=== PATIENT | female | born 1990 | race Asian ===

== ENCOUNTER 2016-12-29 11:24 | Inpatient (IN) | payer OTHER ==
[~2016-12-29] VITALS: Ht 177.8 cm; Wt 91.3 kg
[2016-12-29] MEDS ORDERED: OXYTOCIN 30U/ 0.9% NaCL 500ML 500 ML IV PRN (12:12)
[2016-12-29] MEDS: D5%-LACTATED RINGERS 1,000 ML IV SCH ×2 (12:12→20:12)
[2016-12-29] MEDS ORDERED: OXYTOCIN 30U/ 0.9% NaCL 500ML 500 ML IV ONE (12:12)
[2016-12-29] MEDS ORDERED: FENTANYL PF 100 MCG/2ML IV PRN (12:30)
[2016-12-29] MEDS ORDERED: FENTANYL PF 100 MCG/2ML IVPush PRN (12:30)
[2016-12-29] MEDS ORDERED: ONDANSETRON 2MG/ML, 2ML IVPush PRN (12:30)
[2016-12-29] MEDS ORDERED: CALCIUM CARBONATE 500 MG TAB.CHEW PO PRN (12:30)
[2016-12-29] MEDS ORDERED: SODIUM CHLORIDE FLUSH 10ML SYR IVF PRN (12:30)
[2016-12-29 12:44] VITALS: BP 125/86
[2016-12-29] MEDS ORDERED: NEWBORN KIT ONE (14:08)
[2016-12-29] MEDS ORDERED: LIDOCAINE 1%, 20ML ONE (14:08)
[2016-12-29] MEDS ORDERED: MISOPROSTOL 200 MCG TABLET ONE (14:08)
[2016-12-29] MEDS ORDERED: OXYTOCIN 30U/ 0.9% NaCL 500ML 500 ML ONE ×2 (14:09→20:04)
[2016-12-29] MEDS ORDERED: METHYLERGONOVINE 0.2 MG/ML IM PRN (17:30)
[2016-12-29] MEDS ORDERED: CARBOPROST TROMETHAMINE 250 MCG/ML, 1ML IM PRN (17:30)
[2016-12-29] MEDS ORDERED: METOCLOPRAMIDE 5 MG/ML, 2ML IV PRN (17:30)
[2016-12-29] MEDS ORDERED: ONDANSETRON 2MG/ML, 2ML IV PRN (17:30)
[2016-12-29] MEDS ORDERED: MISOPROSTOL 200 MCG TABLET PR PRN (17:30)
[2016-12-29] MEDS ORDERED: ACETAMINOPHEN 325 MG TABLET PO PRN (17:30)
[2016-12-29] MEDS ORDERED: OXYcodone/APAP 5/325MG TABLET PO PRN ×2 (17:30)
[2016-12-29] MEDS: LACTATED RINGERS 1,000 ML IV SCH ×2 (19:30→20:12)
[2016-12-29] MEDS ORDERED: IBUPROFEN 600 MG TABLET ONE (20:04)
[2016-12-29] MEDS: IBUPROFEN 600 MG TABLET PO PRN (20:29)
[2016-12-29] MEDS: OXYTOCIN 30U/ 0.9% NaCL 500ML 500 ML IV SCH (20:30)
[2016-12-29 21:30] VITALS: BP 112/68
[2016-12-30 00:25] VITALS: BP 111/63
[2016-12-30] MEDS: IBUPROFEN 600 MG TABLET PO PRN ×3 (02:59→20:48)
[2016-12-30] MEDS: OXYTOCIN 30U/ 0.9% NaCL 500ML 500 ML IV SCH ×2 (03:27→04:43)
[2016-12-30 05:20] VITALS: BP 111/66
[2016-12-30 06:55] VITALS: BP 116/60
[2016-12-30] MEDS: DOCUSATE 100 MG CAPSULE PO PRN ×2 (08:39→20:48)
[2016-12-30] MEDS: PRENATAL VIT/IRON/FA 1 EACH TABLET PO SCH (08:39)
[2016-12-30 11:50] VITALS: BP 110/76
[2016-12-30 16:10] VITALS: BP 114/71
[2016-12-30 20:50] VITALS: BP 114/71
[2016-12-31 07:00] VITALS: BP 111/71
[2016-12-31] MEDS: DOCUSATE 100 MG CAPSULE PO PRN (09:27)
[2016-12-31] MEDS: PRENATAL VIT/IRON/FA 1 EACH TABLET PO SCH (09:27)
[2016-12-31] MEDS: IBUPROFEN 600 MG TABLET PO PRN (09:27)
== END 2016-12-31 12:27 | disposition home or self-care (01) | DRG 775 ==
LOC: LDOP 11:24 → LDIP 11:49 → 2NW 21:15
PROVIDERS: ADMIT Obstetrics & Gynecology; ATTEND Obstetrics & Gynecology
PROC: 10E0XZZ Delivery of Products of Conception, External Approach (ICD-10-PCS; principal; 2016-12-29)
PROC: 0UQGXZZ Repair Vagina, External Approach (ICD-10-PCS; 2016-12-29)
PROC: 10907ZC Drainage of Amniotic Fluid, Therapeutic from Products of Conception, Via Natural or Artificial Opening (ICD-10-PCS; 2016-12-29)
DX: O71.4 Obstetric high vaginal laceration alone (principal); O75.89 Other specified complications of labor and delivery; Z3A.38 38 weeks gestation of pregnancy; Z87.440 Personal history of urinary (tract) infections; Z37.0 Single live birth
CPT/HCPCS: 36415; 85025; 86850; 86900; J2590; J7120